=== PATIENT | female | born 1935 | race Caucasian/White ===

== ENCOUNTER 2019-02-26 16:40 | Inpatient (IN) ==
[2019-02-26 17:05] LABS: Basophils # 0.1 10*3/uL (0.0-0.2); Basophils % 0.4 % (0.0-0.8); Eosinophils # 0.1 10*3/uL (0.0-0.87); Eosinophils % 0.4 % (0.00-10.9); Hematocrit 39.6 VOL% (35.7-47.0); Immature Granulocytes % 0.7 %; Immature Granulocytes Absolute 0.11 #; Lymphocytes # 1.8 10*3/uL (1.4-4.0); Lymphocytes % 11.7 % (21.3-54.2); Mean Corpuscular HGB Conc 32.8 GM/DL (32-36); Mean Corpuscular Volume 97.3 FL (87-102); Monocytes % 4.9 % (1.7-12.7); Neutrophils % 81.9 % (38.7-73.9); Platelet Count 256 T/CUMM (130-400); Red Blood Count 4.07 MC/CUMM (3.8-5.5); Red Cell Distribution Width 13.2 % (9.3-17.3)
[2019-02-26] MEDS ORDERED: MORPHINE 4 MG/1 ML VIAL ONE (17:10)
[2019-02-26 17:28] LABS: INR 0.9; PT Patient Result 10.1 SECS
[2019-02-26] MEDS ORDERED: MORPHINE 4 MG/1 ML VIAL IV STA (17:34)
[2019-02-26 17:51] LABS: Albumin 3.5 G/DL (3.4-5.0); Bilirubin,Total 0.8 MG/DL (0.2-1.0); Calcium 8.8 MG/DL (8.5-10.1); Osmolality,Calculated 278.5 MOS/KG (273-304); Total Protein 7.1 G/DL (6.4-8.3)
[2019-02-26] MEDS ORDERED: guaiFENesin/DM ER 600-30 MG TABLET PO PRN (18:53)
[2019-02-26] MEDS ORDERED: ONDANSETRON 4 MG/2 ML VIAL IV PRN (18:53)
[2019-02-26] MEDS ORDERED: hydrALAZINE 20 MG/1 ML VIAL IV PRN (19:01)
[2019-02-26] MEDS: DEXT 5% NACL 0.45% KCL 20 MEQ 20 MEQ/1,000 ML BAG IV SCH (20:00)
[2019-02-26 21:15] LABS: Apearance,Urine CLEAR (Clear); Bacteria,Urine Occasional /HPF (Few); Bilirubin,Urine Negative (Negative); Blood, Urine Negative (Negative); Glucose,Urine (UA) Negative (Negative); Ketones,Urine Negative (Negative); Mucus,Urine Occasional /LPF (Occasional); Nitrite,Urine Negative (Negative); Protein,Urine Negative; RBC,Urine 1 /HPF (0-4); Urine Color Yellow (Yellow); Urine Specific Gravity 1.009 (1.001-1.035); Urine Urobilinogen < 2.0 EU/DL (0.2-1.0); WBC,Urine 1 /HPF (0-6)
[2019-02-26] MEDS: MORPHINE 4 MG/1 ML VIAL IV PRN (21:54)
[2019-02-26] MEDS: HYDROmorphone 2 MG/1 ML VIAL IV PRN (23:26)
[2019-02-27 04:58] LABS: Basophils % 0.2 % (0.0-0.8); Eosinophils % 0.1 % (0.00-10.9); Hematocrit 41.1 VOL% (35.7-47.0); Hemoglobin 13.5 GM/DL (12.0-16.0); Immature Granulocytes % 0.5 %; Immature Granulocytes Absolute 0.06 #; Lymphocytes # 1.2 10*3/uL (1.4-4.0); Lymphocytes % 10.2 % (21.3-54.2); Mean Corpuscular HGB Conc 32.8 GM/DL (32-36); Mean Corpuscular Volume 96.7 FL (87-102); Mean Platelet Volume 9.3 FL (9.6-12.0); Monocytes % 6.5 % (1.7-12.7); Neutrophils % 82.5 % (38.7-73.9); Platelet Count 259 T/CUMM (130-400); Red Blood Count 4.25 MC/CUMM (3.8-5.5); Red Cell Distribution Width 13.2 % (9.3-17.3); White Blood Count 12.2 T/CUMM (4-12)
[2019-02-27 05:06] LABS: INR 0.9; PT Patient Result 10.1 SECS
[2019-02-27] MEDS: HYDROmorphone 2 MG/1 ML VIAL IV PRN (05:10)
[2019-02-27 05:19] LABS: Calcium 8.6 MG/DL (8.5-10.1); Osmolality,Calculated 274.7 MOS/KG (273-304)
[2019-02-27] MEDS: PANTOPRAZOLE 40 MG TABLET PO SCH (08:02)
[2019-02-27] MEDS ORDERED: MIDAZOLAM 2 MG/2 ML VIAL ONE (09:11)
[2019-02-27] MEDS ORDERED: LACTATED RINGERS 1,000 ML IV SCH (10:00)
[2019-02-27] MEDS ORDERED: ceFAZolin 1,000 MG VIAL ONE (10:15)
[2019-02-27] MEDS ORDERED: ONDANSETRON 4 MG/2 ML VIAL IV PRN ×2 (12:40→14:09)
[2019-02-27] MEDS ORDERED: PHENYLEPHRINE DRIP 20 MG/250 ML PREMIX IV ONE (12:40)
[2019-02-27] MEDS ORDERED: MEPERIDINE 25 MG/1 ML VIAL IV PRN (12:40)
[2019-02-27] MEDS ORDERED: ETOMIDATE 40 MG/20 ML VIAL IV ONE (12:41)
[2019-02-27] MEDS ORDERED: ROCURONIUM 100 MG/10 ML VIAL IV ONE (12:41)
[2019-02-27] MEDS ORDERED: ONDANSETRON 4 MG/2 ML VIAL ONE ×2 (12:41→12:57)
[2019-02-27] MEDS ORDERED: GLYCOPYRROLATE 0.4 MG/2 ML VIAL ONE (12:41)
[2019-02-27] MEDS ORDERED: PHENYLEPHRINE 1 MG/10 ML SYRINGE IV ONE (12:41)
[2019-02-27] MEDS ORDERED: NEOSTIGMINE 10 MG/10 ML VIAL ONE (12:41)
[2019-02-27] MEDS ORDERED: DEXAMETHASONE 4 MG/1 ML VIAL ONE (12:41)
[2019-02-27] MEDS ORDERED: LACTATED RINGERS 1,000 ML IV ONE (12:41)
[2019-02-27] MEDS ORDERED: fentaNYL 100 MCG/2 ML VIAL ONE (12:41)
[2019-02-27] MEDS ORDERED: SEVOFLURANE 1 UNIT/15 MINUTE INH ONE (12:41)
[2019-02-27] MEDS ORDERED: MEPERIDINE 25 MG/1 ML VIAL ONE (12:57)
[2019-02-27] MEDS: DEXT 5% NACL 0.45% KCL 20 MEQ 20 MEQ/1,000 ML BAG IV SCH ×2 (13:06→23:20)
[2019-02-27] MEDS ORDERED: oxyCODONE/ACETAMINOPHEN 5-325 MG TABLET PO PRN (14:09)
[2019-02-27] MEDS ORDERED: ACETAMINOPHEN 325 MG TABLET PO PRN (14:09)
[2019-02-27] MEDS ORDERED: MAGNESIUM HYDROXIDE SUSP 30 ML UDCUP PO PRN ×2 (14:09→14:48)
[2019-02-27] MEDS: MORPHINE 4 MG/1 ML VIAL IV PRN ×2 (15:41→20:17)
[2019-02-27] MEDS ORDERED: HALOPERIDOL 5 MG/ML AMP IV ONE (15:47)
[2019-02-27] MEDS: ALUMINUM/MAGNES/SIMETH MAX STR 30 ML UDCUP PO SCH ×2 (16:00→20:22)
[2019-02-27] MEDS: ceFAZolin 1,000 MG in SYRINGE 1 EACH IV SCH (19:13)
[2019-02-27] MEDS: MELATONIN 3 MG TABLET PO SCH (20:21)
[2019-02-27] MEDS: SIMVASTATIN 40 MG TABLET PO SCH (20:22)
[2019-02-27] MEDS: MEMANTINE 10 MG TABLET PO SCH (20:22)
[2019-02-28] MEDS: MORPHINE 4 MG/1 ML VIAL IV PRN ×2 (00:02→16:29)
[2019-02-28] MEDS: ALUMINUM/MAGNES/SIMETH MAX STR 30 ML UDCUP PO SCH ×8 (00:07→22:27)
[2019-02-28] MEDS ORDERED: LORazepam 2 MG/1 ML VIAL IV ONE (00:50)
[2019-02-28] MEDS: ceFAZolin 1,000 MG in SYRINGE 1 EACH IV SCH (02:40)
[2019-02-28 04:50] LABS: Basophils % 0.2 % (0.0-0.8); Hematocrit 28.7 VOL% (35.7-47.0); Hemoglobin 9.2 GM/DL (12.0-16.0); Immature Granulocytes % 0.6 %; Immature Granulocytes Absolute 0.07 #; Lymphocytes # 1.5 10*3/uL (1.4-4.0); Lymphocytes % 13.6 % (21.3-54.2); Mean Corpuscular HGB Conc 32.1 GM/DL (32-36); Mean Corpuscular Volume 98.3 FL (87-102); Mean Platelet Volume 9.4 FL (9.6-12.0); Monocytes % 8.4 % (1.7-12.7); Neutrophils % 77.2 % (38.7-73.9); Platelet Count 216 T/CUMM (130-400); Red Blood Count 2.92 MC/CUMM (3.8-5.5); Red Cell Distribution Width 13.3 % (9.3-17.3); White Blood Count 11.1 T/CUMM (4-12)
[2019-02-28 05:14] LABS: Osmolality,Calculated 277.8 MOS/KG (273-304)
[2019-02-28] MEDS: SERTRALINE 25 MG TABLET PO SCH (09:00)
[2019-02-28] MEDS: MULTIVITAMIN (CENTRUM) TABLET PO SCH (09:00)
[2019-02-28] MEDS: CALCIUM (CARBONATE)/VITAMIN D 600 MG-400 UNIT TABLET PO SCH (09:14)
[2019-02-28] MEDS: PANTOPRAZOLE 40 MG TABLET PO SCH (09:14)
[2019-02-28] MEDS: MEMANTINE 10 MG TABLET PO SCH ×3 (09:14→20:17)
[2019-02-28] MEDS: POLYETHYLENE GLYCOL POWDER 17 GM PACK PO SCH (09:14)
[2019-02-28] MEDS: ASPIRIN 325 MG TABLET PO SCH (09:14)
[2019-02-28] MEDS: cefTRIAXone 1,000 MG in SYRINGE 1 EACH IV SCH (14:37)
[2019-02-28] MEDS ORDERED: HALOPERIDOL 5 MG/ML AMP IV PRN (17:00)
[2019-02-28] MEDS: MELATONIN 3 MG TABLET PO SCH ×2 (20:16)
[2019-02-28] MEDS: SIMVASTATIN 40 MG TABLET PO SCH ×2 (20:17)
[2019-02-28] MEDS: DEXT 5% NACL 0.45% KCL 20 MEQ 20 MEQ/1,000 ML BAG IV SCH (20:20)
[2019-03-01] MEDS ORDERED: HALOPERIDOL 5 MG/ML AMP IM PRN (03:00)
[2019-03-01] MEDS: ALUMINUM/MAGNES/SIMETH MAX STR 30 ML UDCUP PO SCH ×6 (03:45→22:40)
[2019-03-01 05:40] LABS: Basophils % 0.1 % (0.0-0.8); Eosinophils % 0.1 % (0.00-10.9); Hematocrit 31.9 VOL% (35.7-47.0); Hemoglobin 10.6 GM/DL (12.0-16.0); Immature Granulocytes % 0.6 %; Immature Granulocytes Absolute 0.07 #; Lymphocytes # 0.8 10*3/uL (1.4-4.0); Lymphocytes % 7.3 % (21.3-54.2); Mean Corpuscular HGB Conc 33.2 GM/DL (32-36); Mean Corpuscular Volume 94.9 FL (87-102); Mean Platelet Volume 9.8 FL (9.6-12.0); Neutrophils % 84.9 % (38.7-73.9); Platelet Count 203 T/CUMM (130-400); Red Blood Count 3.36 MC/CUMM (3.8-5.5); Red Cell Distribution Width 13.3 % (9.3-17.3)
[2019-03-01] MEDS: MORPHINE 4 MG/1 ML VIAL IV PRN (06:23)
[2019-03-01] MEDS: HYDROmorphone 2 MG/1 ML VIAL IV PRN ×3 (07:14→20:07)
[2019-03-01] MEDS: SERTRALINE 25 MG TABLET PO SCH (08:24)
[2019-03-01] MEDS: MULTIVITAMIN (CENTRUM) TABLET PO SCH (08:24)
[2019-03-01] MEDS: ASPIRIN 325 MG TABLET PO SCH (08:24)
[2019-03-01] MEDS: CALCIUM (CARBONATE)/VITAMIN D 600 MG-400 UNIT TABLET PO SCH (08:24)
[2019-03-01] MEDS: POLYETHYLENE GLYCOL POWDER 17 GM PACK PO SCH (08:25)
[2019-03-01] MEDS: PANTOPRAZOLE 40 MG TABLET PO SCH (08:35)
[2019-03-01] MEDS: MEMANTINE 10 MG TABLET PO SCH ×2 (08:35→22:40)
[2019-03-01] MEDS: cefTRIAXone 1,000 MG in SYRINGE 1 EACH IV SCH (12:00)
[2019-03-01] MEDS: DEXT 5% NACL 0.45% KCL 20 MEQ 20 MEQ/1,000 ML BAG IV SCH (16:24)
[2019-03-01] MEDS: MELATONIN 3 MG TABLET PO SCH (22:40)
[2019-03-01] MEDS: SIMVASTATIN 40 MG TABLET PO SCH (22:40)
[2019-03-02] MEDS: HYDROmorphone 2 MG/1 ML VIAL IV PRN (02:01)
[2019-03-02] MEDS: DEXT 5% NACL 0.45% KCL 20 MEQ 20 MEQ/1,000 ML BAG IV SCH ×2 (03:00→09:52)
[2019-03-02] MEDS: ALUMINUM/MAGNES/SIMETH MAX STR 30 ML UDCUP PO SCH ×3 (03:23→10:28)
[2019-03-02 06:07] LABS: Basophils % 0.3 % (0.0-0.8); Eosinophils % 0.4 % (0.00-10.9); Hematocrit 31.2 VOL% (35.7-47.0); Hemoglobin 10.4 GM/DL (12.0-16.0); Immature Granulocytes % 0.5 %; Immature Granulocytes Absolute 0.05 #; Lymphocytes # 0.9 10*3/uL (1.4-4.0); Lymphocytes % 9.7 % (21.3-54.2); Mean Corpuscular HGB Conc 33.3 GM/DL (32-36); Mean Corpuscular Volume 96.3 FL (87-102); Mean Platelet Volume 9.7 FL (9.6-12.0); Monocytes % 6.7 % (1.7-12.7); Neutrophils % 82.4 % (38.7-73.9); Platelet Count 239 T/CUMM (130-400); Red Blood Count 3.24 MC/CUMM (3.8-5.5); Red Cell Distribution Width 13.4 % (9.3-17.3); White Blood Count 9.7 T/CUMM (4-12)
[2019-03-02 08:08] VITALS: BP 147/85
[2019-03-02] MEDS: MULTIVITAMIN (CENTRUM) TABLET PO SCH (08:32)
[2019-03-02] MEDS: SERTRALINE 25 MG TABLET PO SCH (09:52)
[2019-03-02] MEDS: POLYETHYLENE GLYCOL POWDER 17 GM PACK PO SCH (09:53)
[2019-03-02] MEDS: CALCIUM (CARBONATE)/VITAMIN D 600 MG-400 UNIT TABLET PO SCH (09:53)
[2019-03-02] MEDS: MEMANTINE 10 MG TABLET PO SCH (09:53)
[2019-03-02] MEDS: ASPIRIN 325 MG TABLET PO SCH (09:53)
[2019-03-02] MEDS: PANTOPRAZOLE 40 MG TABLET PO SCH (09:54)
[2019-03-02] MEDS: cefTRIAXone 1,000 MG in SYRINGE 1 EACH IV SCH (10:28)
[2019-03-06] MEDS ORDERED: NF- (Alendronate [Fosamax] 70 MG) PO SCH (09:00)
== END 2019-03-02 11:35 | DRG 481 ==
LOC: EDBD → EDUNIT# → N.ED 16:40 → N.EDINP 18:53 → SUATTDRO 18:53 → N.3E 19:21
PROVIDERS: ADMIT Internal Medicine; ATTEND Internal Medicine Geriatric Medicine

== ENCOUNTER 2021-08-07 15:28 | Inpatient (IN) ==
[2021-08-07 16:57] LABS: Osmolality,Calculated 340.6 MOS/KG (273-304); Potassium 3.3 MMOL/L (3.5-5.1)
[2021-08-07] MEDS ORDERED: SODIUM CHLORIDE 0.45% 1,000 ML IV SCH (17:30)
[2021-08-07] MEDS ORDERED: ONDANSETRON 4 MG/2 ML VIAL IV PRN (17:57)
[2021-08-07] MEDS ORDERED: GLUCAGON 1 MG VIAL IM PRN (17:57)
[2021-08-07] MEDS ORDERED: DEXTROSE 50% 25 GM/50 ML SYRINGE IV PRN (17:57)
[2021-08-07] MEDS ORDERED: POTASSIUM CHLORIDE RIDER 10 MEQ/100 ML PREMIX IV PRN (18:05)
[2021-08-07] MEDS ORDERED: MAGNESIUM SULF RIDER 2 GM/50 ML PREMIX IV PRN (18:06)
[2021-08-07] MEDS ORDERED: MAGNESIUM SULF RIDER 4 GM/100 ML PREMIX IV PRN (18:06)
[2021-08-07] MEDS ORDERED: DEXTROSE 5% 1,000 ML IV SCH (18:30)
[2021-08-07 19:08] LABS: Bacteria,Urine Many /HPF (Few); Bilirubin,Urine Negative (Negative); Blood, Urine Negative (Negative); Glucose,Urine (UA) Negative (Negative); Hyaline Casts,Urine 91 /LPF (0-3); Ketones,Urine Negative (Negative); Mucus,Urine Occasional /LPF (Occasional); Nitrite,Urine Negative (Negative); Protein,Urine 30 MG/DL; RBC,Urine 1 /HPF (0-4); Urine Appearance Slightly Hazy (Clear); Urine Color Amber (Yellow); Urine Specific Gravity 1.024 (1.001-1.035); Urine Urobilinogen < 2.0 EU/DL (<2.0)
[2021-08-07] MEDS ORDERED: BENZOCAINE/BUTAMBEN/TETRACAINE SPRAY 20 GM CAN TOP ONE (19:38)
[2021-08-07 20:11] LABS: Basophils % 0.4 % (0.0-0.8); Eosinophils # 0.3 10*3/uL (0.0-0.87); Eosinophils % 2.8 % (0.00-10.9); Hemoglobin 13.7 GM/DL (12.0-16.0); Immature Granulocytes % 0.8 %; Immature Granulocytes Absolute 0.09 #; Lymphocytes % 8.8 % (21.3-54.2); Mean Corpuscular HGB Conc 30.4 GM/DL (32-36); Mean Platelet Volume 11.7 FL (9.6-12.0); Monocytes % 7.8 % (1.7-12.7); Neutrophils % 79.4 % (38.7-73.9); Platelet Count 271 T/CUMM (130-400); Red Blood Count 4.37 MC/CUMM (3.8-5.5); Red Cell Distribution Width 14.2 % (9.3-17.3); White Blood Count 11.4 T/CUMM (4-12)
[2021-08-07 20:27] LABS: Eosinophils 3 % (0-10); Lymphocytes 12 % (20-55); Metamyelocytes 2 %; Segmented Neutrophils 77 % (50-85); Total Cells Counted 100
[2021-08-07] MEDS: INSULIN LISPRO 100 UNIT/ML SUBCUT SCH (20:58)
[2021-08-07] MEDS: POTASSIUM CHLORIDE RIDER 10 MEQ/100 ML PREMIX IV SCH (23:30)
[2021-08-07] MEDS: HEPARIN 5,000 UNIT/1 ML VIAL SUBCUT SCH (23:30)
[2021-08-08] MEDS: INSULIN LISPRO 100 UNIT/ML SUBCUT SCH ×4 (03:08→17:29)
[2021-08-08] MEDS: POTASSIUM CHLORIDE RIDER 10 MEQ/100 ML PREMIX IV SCH (03:08)
[2021-08-08 04:31] LABS: Basophils % 0.3 % (0.0-0.8); Eosinophils # 0.3 10*3/uL (0.0-0.87); Eosinophils % 3.4 % (0.00-10.9); Hematocrit 40.5 VOL% (35.7-47.0); Hemoglobin 12.4 GM/DL (12.0-16.0); Immature Granulocytes % 0.8 %; Immature Granulocytes Absolute 0.07 #; Lymphocytes # 0.7 10*3/uL (1.4-4.0); Lymphocytes % 7.1 % (21.3-54.2); Mean Corpuscular HGB Conc 30.6 GM/DL (32-36); Mean Platelet Volume 10.9 FL (9.6-12.0); Monocytes % 6.1 % (1.7-12.7); Neutrophils % 82.3 % (38.7-73.9); Platelet Count 228 T/CUMM (130-400); Red Blood Count 3.97 MC/CUMM (3.8-5.5); White Blood Count 9.3 T/CUMM (4-12)
[2021-08-08 04:56] LABS: Band Neutrophils 8 % (0-10); Eosinophils 2 % (0-10); Lymphocytes 10 % (20-55); Platelet Estimate Normal; Segmented Neutrophils 75 % (50-85); Total Cells Counted 100
[2021-08-08 05:20] LABS: Calcium 8.1 MG/DL (8.5-10.1); Osmolality,Calculated 334.7 MOS/KG (273-304); Potassium 2.8 MMOL/L (3.5-5.1); Thyroid Stimulating Hormone 0.144 uIU/ml (0.358-3.74)
[2021-08-08] MEDS: HEPARIN 5,000 UNIT/1 ML VIAL SUBCUT SCH ×2 (08:47→20:37)
[2021-08-08] MEDS: PANTOPRAZOLE 40 MG VIAL IV SCH (08:48)
[2021-08-08] MEDS: DEXT 5% NACL 0.45% KCL 40 MEQ 40 MEQ/1,000 ML BAG IV SCH (11:47)
[2021-08-08] MEDS: cefTRIAXone 1,000 MG in SODIUM CHLORIDE 0.9% 100 ML IV SCH (12:30)
[2021-08-08] MEDS ORDERED: DEXTROSE 10% 250 ML BAG IV PRN (14:30)
[2021-08-08] MEDS: ACETAMINOPHEN 325 MG TABLET PER TUBE PRN ×2 (14:57→20:38)
[2021-08-08] MEDS ORDERED: SODIUM CHLORIDE 0.9% 250 ML IV ONE (17:37)
[2021-08-09] MEDS: INSULIN LISPRO 100 UNIT/ML SUBCUT SCH ×2 (01:27→06:17)
[2021-08-09] MEDS: ACETAMINOPHEN 325 MG TABLET PER TUBE PRN (01:29)
[2021-08-09] MEDS: DEXT 5% NACL 0.45% KCL 40 MEQ 40 MEQ/1,000 ML BAG IV SCH (02:03)
[2021-08-09 07:00] LABS: Basophils # 0.1 10*3/uL (0.0-0.2); Basophils % 0.7 % (0.0-0.8); Eosinophils # 0.2 10*3/uL (0.0-0.87); Hematocrit 39.1 VOL% (35.7-47.0); Immature Granulocytes % 0.9 %; Immature Granulocytes Absolute 0.13 #; Lymphocytes # 0.4 10*3/uL (1.4-4.0); Lymphocytes % 2.6 % (21.3-54.2); Mean Corpuscular HGB Conc 30.7 GM/DL (32-36); Monocytes % 3.3 % (1.7-12.7); Neutrophils % 91.5 % (38.7-73.9); Platelet Count 184 T/CUMM (130-400); Red Blood Count 3.87 MC/CUMM (3.8-5.5); Red Cell Distribution Width 14.1 % (9.3-17.3); White Blood Count 14.7 T/CUMM (4-12)
[2021-08-09 07:25] LABS: Calcium 8.1 MG/DL (8.5-10.1); Osmolality,Calculated 332.7 MOS/KG (273-304); Potassium 3.5 MMOL/L (3.5-5.1)
[2021-08-09 07:29] LABS: Anisocytosis 1+; Band Neutrophils 38 % (0-10); Eosinophils 1 % (0-10); Lymphocytes 3 % (20-55); Macrocytosis Slight; Metamyelocytes 1 %; Platelet Estimate Normal; Segmented Neutrophils 54 % (50-85); Total Cells Counted 100
[2021-08-09 07:30] LABS: Free T4 (Free Thyroxine) 0.88 NG/DL (0.76-1.46)
[2021-08-09] MEDS: PANTOPRAZOLE 40 MG VIAL IV SCH (08:29)
[2021-08-09] MEDS: HEPARIN 5,000 UNIT/1 ML VIAL SUBCUT SCH (08:30)
[2021-08-09] MEDS: cefTRIAXone 1,000 MG in SODIUM CHLORIDE 0.9% 100 ML IV SCH (08:31)
[2021-08-09] MEDS ORDERED: SODIUM BICARB INJ 50 MEQ in DEXTROSE 5% 1,000 ML IV SCH (09:00)
[2021-08-09] MEDS ORDERED: ASPIRIN CHEW 81 MG TABLET PO SCH (09:00)
[2021-08-09] MEDS: MORPHINE 2 MG/1 ML SYRINGE IV PRN ×2 (14:35→19:33)
[2021-08-10] MEDS: ACETAMINOPHEN 325 MG TABLET PER TUBE PRN (00:42)
[2021-08-10] MEDS: MORPHINE 2 MG/1 ML SYRINGE IV PRN ×6 (00:49→22:02)
[2021-08-11] MEDS: MORPHINE 2 MG/1 ML SYRINGE IV PRN ×2 (03:40→06:14)
[2021-08-11 07:43] VITALS: BP 77/51
== END 2021-08-11 08:50 | disposition hospice, inpatient (51) | DRG 682 ==
LOC: EDBD → EDUNIT# → N.ED 15:28 → SUATTDRO 17:27 → N.EDINP 17:27 → N.3E 08-08 08:23
PROVIDERS: ADMIT Internal Medicine; ATTEND Internal Medicine